=== PATIENT | male | born 1985 | race Caucasian/White ===

== ENCOUNTER 2018-03-27 21:12 | Emergency (ER) | payer OTHER ==
[~2018-03-27] VITALS: Ht 167.6 cm; Wt 67.6 kg
[2018-03-27 21:45] VITALS: BP 145/88; PULSE 77; RESP 20; Ht 167.6 cm; Wt 67.6 kg
[2018-03-27] MEDS ORDERED: ALBUTEROL 0.083% (NEB) 2.5 MG/3 ML AMP HHN STA (23:47)
[2018-03-27] MEDS ORDERED: ONDANSETRON (ODT) 4 MG TAB ODT STA (23:47)
[2018-03-28] MEDS ORDERED: predniSONE 20 MG TAB PO ONE
[2018-03-28] MEDS ORDERED: D-ME473S2 PO (00:41)
[2018-03-28] MEDS ORDERED: PRED20TA PO (00:41)
[2018-03-28] MEDS ORDERED: ALBU18HF INHALATION (00:41)
--- NOTE | 2018-03-28 00:43 | ERD ---
ER Documentation Chief Complaint Chief Complaint vomiting, dry cough, sore throat x 2 weeks HPI 32-year-old male presents with 2-week history of wheezing, coughing, and a few episodes of posttussive vomiting. No history of measured fevers. Denies chest pain, abdominal pain. Is here with his partner with similar symptoms. ROS All systems reviewed and are negative except as per history of present illness. Medications Home Meds Active Scripts Dextromethorphan Hb-Promethazine Hcl* (Promethazine DM* Syrup) 473 Ml Syrup, 5 ML PO Q6 PRN for COUGH for 5 Days, ML Prov:HELEN CLARK MD 03/28/18 Albuterol Sulfate* (Ventolin HFA*) 18 Gm Hfa.aer.ad, 2 PUFF INHALATION Q4H, #1 INHALER Prov:HELEN CLARK MD 03/28/18 Prednisone* (Prednisone*) 20 Mg Tab, 40 MG PO DAILY for 4 Days, TAB Start March 29, 2018 Prov:HELEN CLARK MD 03/28/18 Allergies Allergies: Coded Allergies: No Known Allergy (Unverified , 03/27/18) PMhx/Soc Hx Respiratory Disorders: Yes (asthma) Hx Alcohol Use: No Hx Substance Use: No Hx Tobacco Use: No Smoking Status: Former smoker FmHx Family History: No diabetes, No coronary disease, No other Physical Exam Vitals Vital Signs Date Temp Pulse Resp B/P (MAP) Pulse Ox O2 O2 Flow FiO2 Time Delivery Rate 03/28/18 85 20 97 21 00:02 03/27/18 98.6 77 20 145/88 97 21:45 (107) Physical Exam Const: No acute distress Head: Atraumatic Eyes: Normal Conjunctiva ENT: Normal External Ears, Nose and Mouth. TMs and oropharynx normal. Neck: Full range of motion. No meningismus. Resp: Clear to auscultation bilaterally. Mild forced wheeze without rales, retractions. Cardio: Regular rate and rhythm, no murmurs Abd: Soft, non tender, non distended. Normal bowel sounds Skin: No petechiae or rashes Back: No midline or flank tenderness Ext: No cyanosis, or edema Neur: Awake and alert Psych: Normal Mood and Affect Results 24 hrs Current Medications Medications Dose Sig/Jamison Start Time Status Last (Trade) Ordered Route PRN Stop Time Admin Dose Reason Admin Prednisone 60 mg ONCE ONCE 03/28/18 DC 03/28/18 (Prednisone) PO 00:00 03/28/18 00:19 00:01 Ondansetron 8 mg ONCE STAT 03/27/18 DC 03/28/18 HCl (Zofran ODT 23:47 03/27/18 00:19 Odt) 23:49 Albuterol 2.5 mg ONCE STAT 03/27/18 DC 03/28/18 (Proventil HHN 23:47 03/27/18 00:02 0.083% (Neb)) 23:49 Procedures/MDM She is given prednisone 60 mg by mouth, albuterol treatment. Patient has no signs of pneumonia, no evidence of hypoxemia, respiratory distress, chest pain or abdominal pain. Likely has a viral URI with wheezing. Will treat with promethazine, short course of prednisone, Ventolin, primary care follow-up and return precautions. The patient was stable with no new complaints during the ER course. Clinically, there is no current evidence to suggest meningitis, sepsis, acute abdomen, pneumonia, stroke, acute coronary syndrome, pulmonary embolism, aortic dissection or any other emergent condition appearing to require further evaluation or hospitalization. Patient counseled regarding my diagnostic impression and care plan. Prior to discharge all questions answered. Pt agrees with treatment plan and understands strict return precautions. Pt is instructed to follow up with primary care provider within 24-48 hours. Precautionary instructions provided including instructions to return to the ER if not improving or for any worsening or changing symptoms or concerns. Departure Diagnosis: Primary Impression: URI, acute Condition: Stable Patient Instructions: Uri, Viral W/ Wheezing (Adult) Additional Instructions: Likely viral illness should resolve in the next week. Recheck for new or worsening symptoms with primary care doctor. HELEN CLARK MD Mar 28, 2018 00:43
== END 2018-03-28 01:02 | disposition home or self-care (01) ==
LOC: FTE 21:12
DX: J06.9 Acute upper respiratory infection, unspecified (principal); J45.909 Unspecified asthma, uncomplicated; Z87.891 Personal history of nicotine dependence
CPT/HCPCS: 94664; J7512; Z7502; Z7610

== ENCOUNTER 2018-10-06 23:11 | Emergency (ER) | payer OTHER ==
[~2018-10-06] VITALS: Ht 170.2 cm; Wt 66.8 kg
[~2018-10-06 23:11] MED LIST: ALBU18HF INHALATION; D-ME473S2 PO; PRED20TA PO
[2018-10-06 23:14] VITALS: PULSE 73; Ht 170.2 cm; Wt 66.8 kg
[2018-10-07] MEDS ORDERED: PHEN177S43 MT (00:08)
[2018-10-07] MEDS ORDERED: IBUP-1542 PO (00:08)
[2018-10-07 00:18] VITALS: BP 137/80; RESP 16
--- NOTE | 2018-10-14 01:49 | ERD ---
ER Documentation Chief Complaint Chief Complaint ST X'S 1 WEEK HPI 32-year-old male presents emergency department complaining of sore throat intermittently for the past 1 week. Symptoms are moderate in severity. He took [id number]-svihkln medication with some relief. He denies any fevers, chills, or other symptoms at this time. ROS All systems reviewed and are negative except as per history of present illness. Medications Home Meds Active Scripts Ibuprofen* (Motrin*) 600 Mg Tab, 600 MG PO Q6, #30 TAB Prov:FLAKO RIVERA PA-C 10/07/18 Phenol* (Chloraseptic* Post) 177 Ml Post.pump, 2 SPRAY MT Q2H PRN for SORE THROAT, #1 BOTTLE Prov:FLAKO RIVERA PA-C 10/07/18 Dextromethorphan Hb-Promethazine Hcl* (Promethazine DM* Syrup) 473 Ml Syrup, 5 ML PO Q6 PRN for COUGH for 5 Days, ML Prov:HELEN CLARK MD 03/28/18 Albuterol Sulfate* (Ventolin HFA*) 18 Gm Hfa.aer.ad, 2 PUFF INHALATION Q4H, #1 INHALER Prov:HELEN CLARK MD 03/28/18 Prednisone* (Prednisone*) 20 Mg Tab, 40 MG PO DAILY for 4 Days, TAB Start March 29, 2018 Prov:HELEN CLARK MD 03/28/18 Allergies Allergies: Coded Allergies: No Known Allergy (Unverified , 03/27/18) PMhx/Soc Medical and Surgical Hx: pt denies Surgical Hx Hx Respiratory Disorders: Yes (asthma) Hx Alcohol Use: No Hx Substance Use: No Hx Tobacco Use: No Smoking Status: Never smoker FmHx Family History: No diabetes Physical Exam Physical Exam Const: No acute distress Head: Atraumatic Eyes: Normal Conjunctiva ENT: Normal External Ears, Nose and Mouth. Mild erythema to the posterior pharynx. No exudate. Airway is clear. Neck: Full range of motion. No meningismus. Resp: Clear to auscultation bilaterally Cardio: Regular rate and rhythm, no murmurs Abd: Soft, non tender, non distended. Normal bowel sounds Skin: No petechiae or rashes Back: No midline or flank tenderness Ext: No cyanosis, or edema Neur: Awake and alert Psych: Normal Mood and Affect Results 24 hrs RUN DATE: 10/07/18 [facility] PAGE 1 RUN TIME: [id number] [place] [address] Andre Desai M.D. [employer] Officer Ana Maria Bush M.D. [employer] Officer KILLIAN#: [id number] Name: NILDAYULIANA Age/Sex: 32/M Attend Dr: TERESO MCFARLANE DO Acct: [id number] MR# : [id number] : 1985 Location: [facility] Admit: 10/06/18 ------- Specimen: [id number] Status: Complete Briana: 10/06/18 Rcvd: 10/06/18 Source: THROAT Sp Descrip: Procedure Result Microbiology RAPID STREP ANTIGEN BY EIA Final RAPID STREP ANTIGEN ,EIA NEGATIVE (Ref Range Neg) ............................................................................................ Flags: Critical Hi = *H Critical Lo = *L Microbiology Abnormal = * Abnormal Hi = H Abnormal Lo = L Blood Bank Abnormal = * Susceptability Flags: S = Sensitive R = Resistant I = Intermediate END OF REPORT Procedures/MDM 32-year-old male presenting to the emergency department complaints of sore t hroat. He is afebrile, nontoxic, well-appearing. The patient's clinical presentation is very consistent with an acute viral sy ndrome. The patient does not exhibit any clinical signs or symptoms concerning for serious bacterial infection or systemic illness. Based on history and clinical exam findings the patient does not appear to have evidence of pneumonia, strep pharyngitis, urinary tract infection, bacteremia, sepsis, or meningitis. For these reasons I do not believe it is necessary to obtain laboratory testing or diagnostic imaging. I believe it would be appropriate for symptom control, and close outpatient primary care follow-up. Based on patient's history of present illness and physical examination the decision was made to discharge. There is no evidence of life threatening injuries or illnesses at this time. On re-examination, patient resting in no distress, stable vital signs, reports feeling better and safe for discharge with outpatient follow up with PMD in 1-2 days. Patient given return precautions. Departure Diagnosis: Primary Impression: Sore throat Condition: Fair Patient Instructions: Self-Care for Sore Throats Additional Instructions: Llame al doctor MAANA y panchito dipti RIDDHI PARA DENTRO DE 1-2 MILLER.Dgale a la secretaria que nosotros le instruimos hacer esta riddhi.Avise o llame si lopez condicin se empeora antes de la riddhi. Regresa aqui si peor o no mejor. FLAKO RIVERA PA-C Oct 14, 2018 01:49
== END 2018-10-07 00:19 | disposition home or self-care (01) ==
LOC: FTE 23:11
DX: J02.9 Acute pharyngitis, unspecified (principal); J45.909 Unspecified asthma, uncomplicated
CPT/HCPCS: 87880; 99283